=== PATIENT | female | born 1950 | race Hispanic/Latino ===

== ENCOUNTER → 2018-09-19 | Outpatient (CLI) | payer MEDICARE, OTHER ==
[~2018-09-19] MED LIST: ATACAND4 MG PO; BENADRYL25 M1 PO; CELEBREX100 MG PO; CO Q-10200 MG PEG; IOPAMIDOL 370 MG/ML 200 ML INFUS..BTL INJ ONE; METOPROLOL SUCC50 MG PO; MYRBETRIQ25 MG; NEXIUM40 MG; SIMVASTATIN20 MG PO; SODIUM CHLORIDE 0.9% 50ML 50 ML ONE; VITAMIN D3400 UNIT PO; XANAX0.25 MG PO; [UNRECOGNIZED DRUG - OTHER] VG
[2018-09-19 10:21] LABS: BLOOD UREA NITROGEN 22 mg/dL (7-26); BUN/CREATININE RATIO 31 (6-25); CREATININE, SERUM 0.72 mg/dL (0.57-1.11); EST GLOMERULAR FILTRATION RATE > 60 ML/MIN (60-)
--- NOTE | 2018-09-19 11:38 | Diagnostic Imaging Report ---
EXAM: CT Abdomen and Pelvis WITH contrast INDICATION: Melena. COMPARISON: None. TECHNIQUE: Abdomen and pelvis were scanned utilizing a multidetector helical scanner from the lung base to the pubic symphysis after administration of IV contrast. Coronal and sagittal reformations were obtained. Routine protocol was performed. Scan was performed when during portal venous phase. IV CONTRAST: 100 cc of Isovue-370 ORAL CONTRAST: None. COMPLICATIONS: None RADIATION DOSE: Total DLP: 301.3 mGy*cm Dose modulation, iterative reconstruction, and/or weight based adjustment of the mA/kV was utilized to reduce the radiation dose to as low as reasonably achievable. FINDINGS: LINES and TUBES: None. LOWER THORAX: Unremarkable HEPATOBILIARY: No evidence of focal lesion. No biliary ductal dilation. GALLBLADDER: No radio-opaque stones or sludge. No wall thickening. SPLEEN: No splenomegaly. PANCREAS: No focal masses or ductal dilatation. ADRENALS: No adrenal nodules KIDNEYS/URETERS: Kidneys enhance symmetrically. No evidence of hydronephrosis, solid mass, or stone. Subcentimeter bilateral renal hypodensities are too small to characterize, but likely represent cysts. Extrarenal pelvis bilaterally. GI TRACT: No evidence of wall thickening or distension. Appendix is normal. There is scattered colonic diverticulosis without CT evidence of diverticulitis. PELVIC ORGANS/BLADDER: Unremarkable. The uterus is absent. LYMPH NODES: No lymphadenopathy. VESSELS: There are scattered atherosclerotic calcifications in the aorta and branch vessels. PERITONEUM / RETROPERITONEUM: No free air or fluid. BONES AND SOFT TISSUES: Unremarkable. CONCLUSION: Colonic diverticulosis without CT evidence of diverticulitis. Signed by: Dr. Ryne Rice MD on 09/19/2018 11:34 AM
== END ==
LOC: CT 09:12
PROVIDERS: ATTEND Internal Medicine Gastroenterology
DX: K92.1 Melena (principal)
CPT/HCPCS: 36415; 74177; 82565; 84520; Q9967

== ENCOUNTER 2018-09-23 18:20 | Inpatient (IN) | payer MEDICARE, OTHER ==
[~2018-09-23] VITALS: Ht 152.4 cm; Wt 61.7 kg
--- OUTSIDE RECORDS SUMMARY | 2018-09-23 18:23 | XMS REPORT | Summary of Care ---
Author Author [facility] Organization [facility] Address Unknown Phone Unavailable Encounter FIN [facility] [address] Date(s): 04/08/17 - 04/08/17 [facility] [address] [place], [place] [address] Discharge Disposition: Discharged to Home or Self Care Attending Physician: Elliott Orozco MD Admitting Physician: Elliott Orozco MD Vital Signs No data available for this section Problem List No data available for this section Allergies, Adverse Reactions, Alerts No data available for this section Medications No data available for this section Results No data available for this section Immunizations No data available for this section Procedures No data available for this section Social History No data available for this section Assessment and Plan No data available for this section
--- OUTSIDE RECORDS SUMMARY | 2018-09-23 18:23 | XMS REPORT | Summary of Care ---
Author Author [facility] Organization [facility] Address Unknown Phone Unavailable Encounter GURJIT Theodore(CASSIDY) [id number] Date(s): 12/29/16 - 12/29/16 [facility] [address] [place] [address]- [phone] Discharge Disposition: Home or Self Care Attending Physician: Lizabeth Soliman MD Referring Physician: Lizabeth Soliman MD Vital Signs 1 2 3 Most recent to oldest [Reference Range]: 152.4 cm (12/21/16 11:57 AM) Height 97.9 DegF (12/21/16 11:57 AM) Temperature Oral [96.4-99.1 DegF] 106/51 mmHg (12/29/16 1:45 PM) 136/64 mmHg (12/29/16 12:45 PM) 127/67 mmHg (12/29/16 12:30 PM) Blood Pressure [90-140/60-90 mmHg] 14 BRMIN (12/29/16 1:45 PM) 15 BRMIN (12/29/16 12:45 PM) 16 BRMIN (12/29/16 12:30 PM) Respiratory Rate [14-20 BRMIN] 66 bpm (12/29/16 8:54 AM) 60 bpm (12/21/16 11:57 AM) Peripheral Pulse Rate [60-100 bpm] 60.455 kg (12/21/16 11:57 AM) Weight 26.03 m2 (12/21/16 11:57 AM) Body Mass Index Problem List Condition Effective Dates Status Health Status Informant Heart Resolved disease(Confirmed) Diverticulosis(Confi Resolved rmed) GERD Resolved (gastroesophageal reflux disease)(Confirmed) Hypercholesterolemia Resolved (Confirmed) Hypertension(Confirm Resolved ed) Allergies, Adverse Reactions, Alerts Substance Reaction Severity Status azole antifungals Active codeine Active Demerol HCl Active sulfa drugs Active Vicodin Active Medications acetaminophen (ANES) Route: IV, Drug form: INJ, ONCE, Stop date: 12/29/16 11:03:00 CDT Start Date: 12/29/16 Stop Date: 12/29/16 Status: Completed ANES flumazenil 0.2 mg, Route: IVP, PRN, Dosing Weight 60.455, kg, PRN Benzodiazepine Reversal, Initial dose, Start date: 12/28/16 18:32:00 CDT, Duration: 30 day, Stop date: 18:31:00 CDT Start Date: 12/28/16 Stop Date: 12/29/16 Status: Discontinued ANES naloxone 0.4 mg, Route: IVP, Q2MIN, Dosing Weight 60.455, kg, PRN Narcotic Reversal, Star t date: 12/28/16 18:32:00 CDT, Duration: 8 doses or times, Stop date: Limited # of times Start Date: 12/28/16 Stop Date: 12/29/16 Status: Discontinued ANES ondansetron 4 mg, Route: IVP, ONCE, Dosing Weight 60.455, kg, PRN Nausea & Vomiting, Start date: 12/28/16 18:32:00 CDT Start Date: 12/28/16 Stop Date: 12/29/16 Status: Discontinued candesartan 4 mg oral tablet 4 mg=1 tab, PO, Daily, 0 Refill(s) Start Date: 12/21/16 Status: Ordered dexamethasone (ANES) Route: IV, Drug form: INJ, ONCE, Stop date: 12/29/16 11:03:00 CDT Start Date: 12/29/16 Stop Date: 12/29/16 Status: Completed ePHEDrine (ANES) Route: IV, Drug form: INJ, ONCE, Stop date: 12/29/16 11:04:00 CDT Start Date: 12/29/16 Stop Date: 12/29/16 Status: Completed Exparel 20 mL, Route: InFILtration(local), Drug Form: INJ, Dosing Weight 60.455, kg, ONC E, For Hemorrhoidectomy, Start date: 12/29/16 6:57:00 CDT, Stop date: 12/29/16 6 :57:00 CDT Notes: (Same as: Exparel) NOT FOR IV use Postoperative analgesia: Infi ltration (local): Dose is based on surgical site and volume required to cover th e area (in general, the maximum total dose is 266 mg).Bunionectomy: 7 mL into th e tissues surrounding the osteotomy and 1 mL into the subcutaneous tissue of the surgical site (total dose=8 mL [106 mg])Hemorrhoidectomy: 30 mL (20 mL vial dil uted with 10 mL NS) divided and administered as 6 injections of 5 mL each (total dose=30 mL [266 mg]) Start Date: 12/29/16 Stop Date: 12/29/16 Status: Ordered fentaNYL (ANES) Route: IV, Drug form: INJ, ONCE, Stop date: 12/29/16 10:53:00 CDT Start Date: 12/29/16 Stop Date: 12/29/16 Status: Completed HC Pramoxine 2.5%-1% rectal cream 1 appl, FL, TID, # 30 gm, 0 Refill(s) Start Date: 12/21/16 Stop Date: 12/29/16 Status: Discontinued ketOROLAC (ANES) IV, ONCE Start Date: 12/29/16 Stop Date: 12/29/16 Status: Completed Lactated Ringers Injection IV 1000 mL 1,000 mL, Rate: 25 ml/hr, Infuse over: 40 hr, Route: IV, Dosing Weight 60.455 kg , Total Volume: 1,000, Start date: 12/29/16 8:51:00 CDT, Duration: 30 day, Stop date: 01/28/17 8:50:00 CDT Start Date: 12/29/16 Stop Date: 12/29/16 Status: Discontinued Lactated Ringers Injection IV 1000 mL 1,000 mL, Rate: 125 ml/hr, Infuse over: 8 hr, Route: IV, Dosing Weight 60.455 kg , Total Volume: 1,000, Start date: 12/28/16 18:32:00 CDT, Duration: 30 day, Stop date: 01/27/17 18:31:00 CDT Start Date: 12/28/16 Stop Date: 12/29/16 Status: Discontinued Lactated Ringers Injection IV 1000 mL 1,000 mL, Rate: 25 ml/hr, Infuse over: 40 hr, Route: IV, Dosing Weight 60.455 kg , Total Volume: 1,000, Start date: 12/28/16 18:16:00 CDT, Duration: 30 day, Stop date: 01/27/17 18:15:00 CDT Start Date: 12/28/16 Stop Date: 12/29/16 Status: Discontinued lidocaine (ANES) Route: IV, Drug form: INJ, ONCE, Stop date: 12/29/16 10:58:00 CDT Start Date: 12/29/16 Stop Date: 12/29/16 Status: Completed LR 500 ml INJ (ANES) Route: IV, Total Volume: 500, Start date: 12/29/16 10:08:00 CDT, Stop date: 12/11 02/27 11:08:00 CDT Start Date: 12/29/16 Stop Date: 12/29/16 Status: Completed Melatonin 10 mg oral capsule 10 mg=1 cap, PO, Bedtime, 0 Refill(s) Start Date: 12/21/16 Status: Ordered midazolam (ANES) Route: IV, Drug form: SOLN, ONCE, Stop date: 12/29/16 10:53:00 CDT Start Date: 12/29/16 Stop Date: 12/29/16 Status: Completed nitrofurantoin macrocrystals 100 mg oral capsule (Macrodantin) 100 mg=1 cap, PO, QID, 0 Refill(s) Start Date: 12/21/16 Status: Ordered ondansetron (ANES) Route: IV, Drug form: INJ, ONCE, Stop date: 12/29/16 11:03:00 CDT Start Date: 12/29/16 Stop Date: 12/29/16 Status: Completed Phenergan 25 mg oral tablet 25 mg=1 tab, PO, Q4H, PRN Nausea, # 40 tab, 1 Refill(s), Pharmacy: [facility] Start Date: 12/29/16 Stop Date: 01/08/17 Status: Ordered propofol (ANES) Route: IV, Drug form: INJ, ONCE, Stop date: 12/29/16 10:58:00 CDT Start Date: 12/29/16 Stop Date: 12/29/16 Status: Completed Restasis 0.05% ophthalmic emulsion 1 drp, BOTH EYES, BID, # 30 mL, 0 Refill(s) Start Date: 12/21/16 Status: Ordered Results ELECTROLYTES Most recent to 1 oldest [Reference Range]: Sodium Lvl [135-145 141 mEq/L mEq/L] (12/21/16 12:31 PM) Potassium Lvl 4.0 mEq/L [3.5-5.1 mEq/L] (12/21/16 12:31 PM) Chloride Lvl [95-109 105 mEq/L mEq/L] (12/21/16 12:31 PM) CO2 [24-32 mEq/L] 31 mEq/L (12/21/16:31 PM) AGAP [10.0-20.0 9.0 mEq/L mEq/L] *LOW* (12/21/16:31 PM) CHEM PANEL Most recent to 1 oldest [Reference Range]: Creatinine Lvl 0.57 mg/dL [0.50-1.40 mg/dL] (12/21/16 12:31 PM) eGFR 96 mL/min/1.73m2 1 *NA* (12/21/16:31 PM) BUN [7-22 mg/dL] 15 mg/dL (12/21/16 12:31 PM) B/C Ratio [6-25] 26 *HI* (12/21/16:31 PM) Glucose Lvl [70-99 101 mg/dL mg/dL] *HI* (12/21/16 12:31 PM) Total Protein 7.2 g/dL [6.4-8.4 g/dL] (12/21/16 12:31 PM) Albumin Lvl [3.5-5.0 4.0 g/dL g/dL] (12/21/16:31 PM) Globulin [2.7-4.2 3.2 g/dL g/dL] (12/21/16:31 PM) A/G Ratio [0.7-1.6] 1.2 (12/21/16 12:31 PM) Calcium Lvl 9.6 mg/dL [8.5-10.5 mg/dL] (12/21/16:31 PM) ALT [0-65 unit/L] 20 unit/L (7/11/17 12:31 PM) AST [0-37 unit/L] 14 unit/L (12/21/16 12:31 PM) Alk Phos [39-136 54 unit/L unit/L] (12/21/16 12:31 PM) Bili Total [0.2-1.3 0.5 mg/dL mg/dL] (12/21/16 12:31 PM) 1Result Comment: The eGFR is calculated using the CKD-EPI formula. In most young, healthy individuals the eGFR will be >90 mL/min/1.73m2. The eGFR declines with age. An eGFR of 60-89 may be normal in some populations, particularly the elderly, for whom the CKD-EPI formula has not been extensively validated. Use of the eGFR is not recommended in the following populations: Individuals with unstable creatinine concentrations, including patients and those with serious co-morbid conditions. Patients with extremes in muscle mass or diet. The data above are obtained from the National Kidney Disease Education Program ( NKDEP) which additionally recommends that when the eGFR is used in patients with extremes of body mass index for purposes of drug dosing, the eGFR should be mul tiplied by the estimated BMI. HEMATOLOGY Most recent to 1 oldest [Reference Range]: Hgb [12.0-16.0 g/dL] 14.9 g/dL (12/21/16 12:31 PM) Hct [36.0-48.0 %] 44.6 % (12/21/16 12:31 PM) Immunizations No data available for this section Procedures Procedure Date Related Diagnosis Body Site Cardiac catheterisation 06/13/16 Tarsal tunnel release 04/13/15 Colonoscopy Operation Vaginal hysterectomy Social History Social History Type Response Alcohol Current, Frequency: 1-2 times per month. Smoking Status Never smoker; Exposure to Tobacco Smoke None; Cigarette Smoking Last 365 Days No; Reg Smoking Cessation Counseling No Assessment and Plan Extracted from: Title: Clinical Document Author: Lizabeth Soliman MD Date: 12/29/16 PREOPERATIVE DIAGNOSIS: Grade 3 internal hemorrhoids with prolapse and bleeding,screening colonoscopy. POSTOPERATIVE DIAGNOSIS: Grade 3 internal hemorrhoids with prolapse and bleeding,screening colonoscopy. PROCEDURE Transanal hemorrhoidal dearterialization, colonoscopy. Please refer to separate colonoscopy report. SURGEON: Dr. Soliman CLOUD SOFTWARE ENGINEER: None ANESTHESIA: General IV FLUIDS: 150 mL URINE OUTPUT: No Swanson. ESTIMATED BLOOD LOSS: 10 cc COMPLICATIONS: None FINDINGS: Grade III internal hemorrhoids and no sites with active bleeding was noted, severe pandiverticulosis with fecaliths and tortuous colon. DISPOSITION: Tolerated the procedure well, extubated in the operating room and transferred to postop anesthesia care unit in stable hemodynamic condition. COUNTS: Needle, sponge and correct x 2. INDICATIONS FOR PROCEDURE: The patient is a 66-year-old man who presents a transanal hemorrhoidal dearterialization procedure for chronically prolapsing and bleeding internal hemorrhoids. Informed consent was obtained. All questions were answered to his satisfaction. PROCEDURE IN DETAIL: The patient was brought to the operating room, placed on the table in supine position. General endotracheal anesthesia was induced successfully. Subsequently, the patient was placed on candy canes in the lithotomy position and the perineum was prepped and draped in usual standard sterile fashion. Using the transanal hemorrhoidal dearterialization kit, we identified four arterial signals at 12:00, 3:00, 6:00, and 9:00 respectively. At 4 cm above the dentate line, we placed a 2-0 Vicryl in a [id number] fashion under Doppler ultrasound guidance and confirmed cessation of the arterial signal in each side. Subsequently, we ran each suture over the prolapsing internal hemorrhoidal mucosa up to a centimeter above the dentate line and incorporating the friable internal hemorrhoids with bleeding. We retracted each hemorrhoid back to the distal rectum and performed a hemorrhoidopexy and mucopexy and confirmed complete hemostasis and a mucopexy of each hemorrhoid. Surgicel was left in place. One vial of Exparel was injected for local anesthesia. The Exparel was diluted with 10 mL of normal saline. The procedure was completed. Extracted from: Title: preop Author: Hodan Morales, MPH, Date: 12/29/16 WAT[place] Assessment/Plan I recommend to proceed with transanal hemorrhoidal derarterialization (THD) and she desires to proceed. We will also perform colonoscopy at the same time. We strongly advised the patient follow up with GI service for the colonoscopy. However,the patientwould like to have both procedures done at the same timein an effort to avoid2 different procedures. The patient agrees to proceed with the procedure. Risks, benefits and alternatives to the procedure were discussed in great detail. The patient will schedule the procedure in the near future. All questions were answered to the patient s satisfaction The patient agrees to proceed with the procedure. Risks, benefits and alternatives to the procedure were discussed in great detail. The patient will schedule the procedure in the near future. All questions were answered to the patient s satisfaction The pt was seen and examined together by Hodan Elmore and Dr. Lizabeth Soliman, who provided a [id number] visit and performed the physical exam, assessment & plan, and the note transcribed by Hodan Elmore total exam time, coordination of care, education >25 minutes [3]
--- OUTSIDE RECORDS SUMMARY | 2018-09-23 18:23 | XMS REPORT | Continuity of Care Document ---
Author Author [facility] Interface Address Unknown Phone Unavailable Problems Problem Status Onset Date Classification Date Reported Comments Source Discharge Diagnosis: Complete rotator cuff tear or rupture of right shoulder, not specified as traumatic 05/12/2017 05/14/2017 [facility] UNK Active 11/09/2016 [facility] Heart disease Resolved Problem 01/01/2017 [facility] Diverticulosis Resolved Problem 01/01/2017 [facility] GERD (<span ID="[id number]">Confirmed</span>) Resolved Problem 01/01/2017 [facility] Hypercholesterolemia Resolved Problem 01/01/2017 [facility] Dry eyes Active Problem 05/14/2017 [facility] Hyperlipidemia Active Problem 05/14/2017 [facility] Hypertension Active Problem 05/14/2017 [facility] Urge urinary incontinence Active Problem 05/14/2017 [facility] Medications Medication Details Route Status Patient Instructions Ordering Provider Order Date Source promethazine IVPB 12.5 mg, IV Piggyback, Once PRN for nausea/vomiting, infuse over 15 minutes, first dose 05/12/17 10:24:00 [employer] Inactive 05/12/2017 [facility] morphine 1 mg, IV Push, q5min PRN for Pain Moderate (4- 6), order duration: 5 doses, first dose 05/12/17 10:24:00 [employer], stop date Limited # of times Inactive 05/12/2017 [facility] Misc Medication 700 mL, Soln-IV, IV, Once, first dose 05/12/17 10:23:00 [employer], stop date 05/12/17 10:23:00 [employer] Inactive 05/12/2017 [facility] ketorolac 30 mg=1 mL, Injection, IV, Once, first dose 05/12/17 10:00:00 [employer], stop date 05/12/17 10:00:00 [employer] Inactive 05/12/2017 [facility] glycopyrrolate 0.4 mg=2 mL, Injection, IV, Once, first dose 05/12/17 10:00:00 [employer], stop date 05/12/17 10:00:00 [employer] Inactive 05/12/2017 [facility] neostigmine 3 mg=3 mL, Injection, IV, Once, first dose 05/12/17 10:00:00 [employer], stop date 05/12/17 10:00:00 [employer] Inactive 05/12/2017 [facility] ondansetron 4 mg=2 mL, Injection, IV, Once, first dose 05/12/17 9:53:00 [employer], stop date 05/12/17 9:53:00 [employer] Inactive 05/12/2017 [facility] ePHEDrine 10 mg=0.2 mL, Injection, IV, Once, first dose 05/12/17 9:17:00 [employer], stop date 05/12/17 9:17:00 [employer] Inactive 05/12/2017 [facility] dexamethasone 8 mg=2 mL, Injection, IV, Once, first dose 05/12/17 9:13:00 [employer], stop date 05/12/17 9:13:00 [employer] Inactive 05/12/2017 [facility] ceFAZolin 1 gm, Soln-IV, IV, Once, first dose 05/12/17 9:12:00 [employer], stop date 05/12/17 9:12:00 [employer] Inactive 05/12/2017 [facility] propofol 150 mg=15 mL, Emulsion, IV, Once, first dose 05/12/17 9:02:00 [employer], stop date 05/12/17 9:02:00 [employer] Inactive 05/12/2017 [facility] lidocaine 5 mL, Injection, IV, Once, first dose 05/12/17 9:02:00 [employer], stop date 05/12/17 9:02:00 [employer] Inactive 05/12/2017 [facility] rocuronium 30 mg=3 mL, Injection, IV, Once, first dose 05/12/17 9:02:00 [employer], stop date 05/12/17 9:02:00 [employer] Inactive 05/12/2017 [facility] ropivacaine 150 mg=30 mL, Injection, Nerve Block, Once, first dose 05/12/17 8:30:00 [employer], stop date 05/12/17 8:30:00 [employer] Inactive 05/12/2017 [facility] fentaNYL 100 mcg=2 mL, Injection, IV, Once, first dose 05/12/17 8:26:00 [employer], stop date 05/12/17 8:26:00 [employer] Inactive 05/12/2017 [facility] midazolam 2 mg=2 mL, Injection, IV, Once, first dose 05/12/17 8:26:00 [employer], stop date 05/12/17 8:26:00 [employer] Inactive 05/12/2017 [facility] Cefazolin 1 gm, Soln-IV, IV Piggyback, Once, infuse over 30 minutes, first dose 05/12/17 7:00:00 [employer], stop date 05/12/17 7:00:00 [employer], Prophylaxis Inactive 05/12/2017 [facility] LR 1,000 mL 1,000 mL, IV, 100 mL/hr, start date 05/12/17 6:53:00 [employer], For Adults Inactive 05/12/2017 [facility] multivitamin Oral, qWeek, 0 Refill(s) Active 05/03/2017 [facility] glucosamine 500 mg, Oral, Daily, 0 Refill(s) Active 05/03/2017 [facility] Lamy-3 oral capsule Oral, Daily, 0 Refill(s) Active 05/03/2017 [facility] Vitamin D3 400 IntUnit, Oral, Daily, 0 Refill(s) Active 05/03/2017 [facility] solifenacin succinate 10 MG Oral Tablet [VESICARE] 10 mg=1 tabs, Oral, Daily, 0 Refill(s) Active 05/03/2017 [facility] Estradiol 0.01 MG Vaginal Tablet [Vagifem] 10 mcg=1 tabs, VAG, qHS, 0 Refill(s) Active 05/03/2017 [facility] simvastatin 20 mg oral tablet 20 mg=1 tabs, Oral, qHS, 0 Refill(s) Active 05/03/2017 [facility] Cyclosporine 0.5 MG/ML Ophthalmic Suspension [Restasis] 1 drops, Eye-Both, q12hr, 0 Refill(s) Active 05/03/2017 [facility] metoprolol succinate 25 mg oral tablet, extended release 25 mg=1 tabs, Oral, Daily, 0 Refill(s) Active 05/03/2017 [facility] Melatonin 10 mg, Oral, qHS, 0 Refill(s) Active 05/03/2017 [facility] candesartan 4 mg oral tablet 4 mg=1 tabs, Oral, Daily, 0 Refill(s) Active 05/03/2017 [facility] ALPRAZolam 0.25 mg oral tablet 0.25 mg=1 tabs, Oral, Daily, 0 Refill(s) Active 05/03/2017 [facility] Phenergan 25 mg oral tablet 25 mg=1 tab, PO, Q4H, PRN Nausea, # 40 tab, 1 Refill(s), Pharmacy: [id number] Active 12/29/2016 [facility] ePHEDrine (ANES) Route: IV, Drug form: INJ, ONCE, Stop date: 12/29/16 11:04:00 CDT Inactive 12/29/2016 [facility] ondansetron (ANES) Route: IV, Drug form: INJ, ONCE, Stop date: 12/29/16 11:03:00 CDT Inactive 12/29/2016 [facility] ketOROLAC (ANES) IV, ONCE Inactive 12/29/2016 [facility] dexamethasone (ANES) Route: IV, Drug form: INJ, ONCE, Stop date: 12/29/16 11:03:00 CDT Inactive 12/29/2016 [facility] acetaminophen (ANES) Route: IV, Drug form: INJ, ONCE, Stop date: 12/29/16 11:03:00 CDT Inactive 12/29/2016 [facility] lidocaine (ANES) Route: IV, Drug form: INJ, ONCE, Stop date: 12/29/16 10:58:00 CDT Inactive 12/29/2016 [facility] propofol (ANES) Route: IV, Drug form: INJ, ONCE, Stop date: 12/29/16 10:58:00 CDT Inactive 12/29/2016 [facility] midazolam (ANES) Route: IV, Drug form: SOLN, ONCE, Stop date: 12/29/16 10:53:00 CDT Inactive 12/29/2016 [facility] fentaNYL (ANES) Route: IV, Drug form: INJ, ONCE, Stop date: 12/29/16 10:53:00 CDT Inactive 12/29/2016 [facility] LR 500 ml INJ (ANES) Route: IV, Total Volume: 500, Start date: 12/29/16 10:08:00 CDT, Stop date: 12/29/16 11:08:00 CDT Inactive 12/29/2016 [facility] Calcium Chloride 0.0014 MEQ/ML / Potassium Chloride 0.004 MEQ/ML / Sodium Chloride 0.103 MEQ/ML / Sodium Lactate 0.028 MEQ/ML Injectable Solution 1,000 mL, Rate: 25 ml/hr, Infuse over: 40 hr, Route: IV, Dosing Weight 60.455 kg, Total Volume: 1,000, Start date: 12/29/16 8:51:00 CDT, Duration: 30 day, Stop date: 01/28/17 8:50:00 CDT Inactive 12/29/2016 [facility] Exparel 20 mL, Route: InFILtration(local), Drug Form: INJ, Dosing Weight 60.455, kg, ONCE, For Hemorrhoidectomy, Start date: 12/29/16 6:57:00 CDT, Stop date: 12/29/16 6:57:00 CDTNotes: (Same as: Exparel) NOT FOR IV use Postoperative analgesia: Infiltration (local): Dose is based on surgical site and volume required to cover the area (in general, the maximum total dose is 266 mg). Bunionectomy: 7 mL into the tissues surrounding the osteotomy and 1 mL into the subcutaneous tissue of the surgical site (total dose=8 mL [106 mg]) Hemorrhoidectomy: 30 mL (20 mL vial diluted with 10 mL NS) divided and administered as 6 injections of 5 mL each (total dose=30 mL [266 mg]) Inactive 12/29/2016 [facility] Flumazenil 0.2 mg, Route: IVP, PRN, Dosing Weight 60.455, kg, PRN Benzodiazepine Reversal, Initial dose, Start date: 12/28/16 18:32:00 CDT, Duration: 30 day, Stop date: 01/27/17 18:31:00 CDT No Longer Active 12/28/2016 [facility] Naloxone 0.4 mg, Route: IVP, Q2MIN, Dosing Weight 60.455, kg, PRN Narcotic Reversal, Start date: 12/28/16 18:32:00 CDT, Duration: 8 doses or times, Stop date: Limited # of times No Longer Active 12/28/2016 [facility] Ondansetron 4 mg, Route: IVP, ONCE, Dosing Weight 60.455, kg, PRN Nausea & Vomiting, Start date: 12/28/16 18:32:00 CDT No Longer Active 12/28/2016 [facility] Calcium Chloride 0.0014 MEQ/ML / Potassium Chloride 0.004 MEQ/ML / Sodium Chloride 0.103 MEQ/ML / Sodium Lactate 0.028 MEQ/ML Injectable Solution 1,000 mL, Rate: 125 ml/hr, Infuse over: 8 hr, Route: IV, Dosing Weight 60.455 kg, Total Volume: 1,000, Start date: 12/28/16 18:32:00 CDT, Duration: 30 day, Stop date: 01/27/17 18:31:00 CDT No Longer Active 12/28/2016 [facility] Calcium Chloride 0.0014 MEQ/ML / Potassium Chloride 0.004 MEQ/ML / Sodium Chloride 0.103 MEQ/ML / Sodium Lactate 0.028 MEQ/ML Injectable Solution 1,000 mL, Rate: 25 ml/hr, Infuse over: 40 hr, Route: IV, Dosing Weight 60.455 kg, Total Volume: 1,000, Start date: 12/28/16 18:16:00 CDT, Duration: 30 day, Stop date: 01/27/17 18:15:00 CDT No Longer Active 12/28/2016 [facility] nitrofurantoin macrocrystals 100 mg oral capsule (Macrodantin) 100 mg=1 cap, PO, QID, 0 Refill(s) Active 12/21/2016 [facility] Cyclosporine 0.5 MG/ML Ophthalmic Suspension [Restasis] 1 drp, BOTH EYES, BID, # 30 mL, 0 Refill(s) Active 12/21/2016 [facility] Melatonin 10 mg oral capsule 10 mg=1 cap, PO, Bedtime, 0 Refill(s) Active 12/21/2016 [facility] HC Pramoxine 2.5%-1% rectal cream 1 appl, CT, TID, # 30 gm, 0 Refill(s) No Longer Active 12/21/2016 [facility] candesartan 4 mg oral tablet 4 mg=1 tab, PO, Daily, 0 Refill(s) Active 12/21/2016 [facility] Allergies, Adverse Reactions, Alerts Substance Category Reaction Severity Reaction type Status Date Reported Comments Source azole antifungals Assertion Drug allergy Active [facility] codeine Assertion Drug allergy Active [facility] Demerol HCl Assertion Drug allergy Active [facility] sulfa drugs Assertion Drug allergy Active [facility] Vicodin Assertion Drug allergy Active [facility] Immunizations Immunization Date Given Site Status Last Updated Comments Source Results Order Name Results Value Reference Range Date Interpretation Comments Source LABORATORY Hemoglobin 13.9 g/dL 12.0 - 16.0 05/03/2017 [facility] Hematocrit 41.7 % 36.0 - 48.0 05/03/2017 [facility] AGAP 11.0 meq/L 10.0 - 20.0 05/03/2017 [facility] Calcium Level 9.5 mg/dL 8.5 - 10.5 05/03/2017 [facility] eGFR 95 mL/min/1.73m2 05/03/2017 Result Comment: The eGFR is calculated using the [...] from the National Kidney Disease Education Program (NKDEP) which additionally recommends that when the eGFR is used in patients with extremes of body mass index for purposes of drug dosing, the eGFR should be multiplied by the estimated BMI. [facility] Carbon Dioxide Level 29 meq/L 24 - 32 05/03/2017 [facility] Potassium Level 4.0 meq/L 3.5 - 5.1 05/03/2017 [facility] Chloride Level 105 meq/L 95 - 109 05/03/2017 [facility] BUN 18 mg/dL 7 - 22 05/03/2017 [facility] Creatinine 0.59 mg/dL 0.50 - 1.40 05/03/2017 [facility] Sodium Level 141 meq/L 135 - 145 05/03/2017 [facility] Glucose Lvl 69 mg/dL 70 - 99 05/03/2017 Result Comment: Adult reference range values reflect the clinical guidelines of the [place] [employer]. [facility] Magnesium Level 2.2 mg/dL 1.8 - 2.4 05/03/2017 [facility] CHEM PANEL Bili Total 0.5 mg/dL 0.2 - 1.3 12/21/2016 [facility] CHEM PANEL Alk Phos 54 unit/L 39 - 136 12/21/2016 [facility] CHEM PANEL ALT 20 unit/L 0 - 65 12/21/2016 [facility] CHEM PANEL AST 14 unit/L 0 - 37 12/21/2016 [facility] CHEM PANEL Calcium Lvl 9.6 mg/dL 8.5 - 10.5 12/21/2016 [facility] CHEM PANEL Total Protein 7.2 g/dL 6.4 - 8.4 12/21/2016 [facility] CHEM PANEL CO2 31 meq/L 24 - 32 12/21/2016 [facility] CHEM PANEL BUN 15 mg/dL 7 - 22 12/21/2016 [facility] CHEM PANEL Creatinine Lvl 0.57 mg/dL 0.50 - 1.40 12/21/2016 [facility] CHEM PANEL Glucose Lvl 101 mg/dL 70 - 99 12/21/2016 [facility] CHEM PANEL Potassium Lvl 4.0 meq/L 3.5 - 5.1 12/21/2016 [facility] CHEM PANEL Albumin Lvl 4.0 g/dL 3.5 - 5.0 12/21/2016 [facility] CHEM PANEL Sodium Lvl 141 meq/L 135 - 145 12/21/2016 [facility] CHEM PANEL Chloride Lvl 105 meq/L 95 - 109 12/21/2016 [facility] CHEM PANEL eGFR 96 mL/min/1.73m2 12/21/2016 Result Comment: The eGFR is calculated using the [...] from the National Kidney Disease Education Program (NKDEP) which additionally recommends that when the eGFR is used in patients with extremes of body mass index for purposes of drug dosing, the eGFR should be multiplied by the estimated BMI. [facility] CHEM PANEL Globulin 3.2 g/dL 2.7 - 4.2 12/21/2016 [facility] CHEM PANEL B/C Ratio 26 6 - 25 12/21/2016 [facility] CHEM PANEL AGAP 9.0 meq/L 10.0 - 20.0 12/21/2016 [facility] CHEM PANEL A/G Ratio 1.2 0.7 - 1.6 12/21/2016 [facility] HEMATOLOGY Hgb 14.9 g/dL 12.0 - 16.0 12/21/2016 [facility] HEMATOLOGY Hct 44.6 % 36.0 - 48.0 12/21/2016 [facility] Vital Signs Vital Sign Value Date Comments Source Respitory Rate 16 05/12/2017 [facility] Heart Rate 62 05/12/2017 [facility] Systolic (mm Hg) 122 05/12/2017 [facility] Diastolic (mm Hg) 57 05/12/2017 [facility] Respitory Rate 16 05/12/2017 [facility] Heart Rate 63 05/12/2017 [facility] Systolic (mm Hg) 115 05/12/2017 [facility] Diastolic (mm Hg) 56 05/12/2017 [facility] Systolic (mm Hg) 118 05/12/2017 [facility] Diastolic (mm Hg) 55 05/12/2017 [facility] Respitory Rate 18 05/12/2017 [facility] Heart Rate 62 05/12/2017 [facility] Temperature Oral (F) 36.8 Marci 05/12/2017 [facility] Peripheral Pulse Rate 56 05/12/2017 [facility] Peripheral Pulse Rate 56 05/12/2017 [facility] Weight Measured 75 05/12/2017 [facility] Temperature Oral (F) 36.5 Marci 05/12/2017 [facility] Height 152.40 cm 05/12/2017 [facility] Temperature Oral (F) 36.5 Marci 05/03/2017 [facility] Height 152.40 cm 05/03/2017 [facility] Weight Measured 60.4 05/03/2017 [facility] Systolic (mm Hg) 106 12/29/2016 [facility] Diastolic (mm Hg) 51 12/29/2016 [facility] Respitory Rate 14 12/29/2016 [facility] Systolic (mm Hg) 136 12/29/2016 [facility] Diastolic (mm Hg) 64 12/29/2016 [facility] Respitory Rate 15 12/29/2016 [facility] Systolic (mm Hg) 127 12/29/2016 [facility] Diastolic (mm Hg) 67 12/29/2016 [facility] Respitory Rate 16 12/29/2016 [facility] Heart Rate 66 12/29/2016 [facility] Height 152.4 cm 12/21/2016 [facility] Weight 60.455 12/21/2016 [facility] BMI Calculated 26.03 12/21/2016 [facility] Temperature Oral (F) 97.9 F 12/21/2016 [facility] Heart Rate 60 12/21/2016 [facility] Encounters Location Location Details Encounter Type Encounter Number Reason For Visit Attending Provider ADM Date DC Date Status Source Outpatient [id number] DARIUS DUNAWAY 09/28/2016 Active [facility] Outpatient [id number] THEANNALEEOROGreyson VOLOYIANNIS 10/28/2016 [facility] Outpatient [id number] THEANNALEEOROGreyson VOLOYIANNIS 12/29/2016 [facility] Day Surgery [id number] Theodoros Voloyiannis 12/29/2016 12/29/2016 [facility] Outpatient [id number] DARIUS DUNAWAY 01/12/2017 Active [facility] Outpatient [id number] PAIN Elliott Orozco MD 04/08/2017 Active [facility] Outpatient [id number] Elliott Orozco MD 04/08/2017 04/09/2017 [facility] Outpatient [id number] Elliott Orozco MD 05/12/2017 05/12/2017 Active [facility] Outpatient [id number] Elliott Orozco MD 05/12/2017 05/12/2017 [facility] Procedures Procedure Code Date Perfomer Comments Source Cardiac catheterisation 31898190 06/13/2016 [facility] Tarsal tunnel release [id number] 04/13/2015 [facility] Colonoscopy [id number] [facility] Operation [id number] [facility] Vaginal hysterectomy [id number] [facility] bilateral eye lift [facility] cardiac cath [facility] hysterectomy [facility] Tarsal tunnel bilateral extremities [facility] Transanal hemorrhoidal dearterialization [facility]
--- OUTSIDE RECORDS SUMMARY | 2018-09-23 18:24 | XMS REPORT ---
Author Author [facility] Address Unknown Phone Unavailable Care Team Providers Care Design Inserter Name Role Phone ASHLI NEELY Unavailable Unavailable Problems This patient has no known problems. Allergies, Adverse Reactions, Alerts This patient has no known allergies or adverse reactions. Medications This patient has no known medications. Results Test Description Test Time Test Comments Text Results Atomic Results Result Comments CT ABDOMEN/PELVIS W 2018-09-19 11:19:00 [place] [address] Patient Name: EMMANUEL COATES MR #: [id number] : 1950 Age/Sex: 68/F Req #: [id number] Adm Physician: Ordered by: ASHLI NEELY MD Report #: [id number] Location: CT Room/Bed: Procedure: [id number] CT/CT ABDOMEN/PELVIS W Exam Date: 09/19/18 Exam Time: 1020 REPORT STATUS: Signed EXAM: CT Abdomen and Pelvis WITH contrast INDICA TION: Melena. COMPARISON: None. TECHNIQUE: Abdomen and pelvis were scanned utilizing a multidetector helical scanner from the lung base to the pubic symphysis after administration of IV contrast. Coronal and sagittal reformations were obtained. Routine protocol was performed. Scan was performed when during portal venous phase. IV CONTRAST: 100 cc of Isovue-370 ORAL CONTRAST: None. COMPLICATIONS: None RADIATION DOSE: Total DLP: 301.3 mGy*cm Dose modulation, iterative reconstruction, and/or weight based adjustment of the mA/kV was utilized to reduce the radiation dose to as low as reasonably achievable. FINDINGS: LINES and TUBES: None. LOWER THORAX: Unremarkable HEPATOBILIARY: No evidence of focal lesion. No biliary ductal dilation. GALLBLADDER: No radio-opaque stones or sludge. No wall thickening. SPLEEN: No splenomegaly. PANCREAS: No focal masses or ductal dilatation. ADRENALS: No adrenal nodules KIDNEYS/URETERS: Kidneys enhance symmetrically. No evidence of hydronephrosis, solid mass, or stone. Subcentimeter bilateral renal hypodensities are too small to characterize, but likely represent cysts. Extrarenal pelvis bilaterally. GI TRACT: No evidence of wall thickening or distension. Appendix is normal. There is scattered colonic diverticulosis without CT evidence of diverticulitis. PELVIC ORGANS/BLADDER: Unremarkable. The uterus is absent. LYMPH NODES: No lymphadenopathy. VESSELS: There are scattered atherosclerotic calcifications in the aorta and branch vessels. PERITONEUM / RETROPERITONEUM: No free air or fluid. BONES AND SOFT TISSUES: Unremarkable. CONCLUSION: Colonic diverticulosis without CT evidence of diverticulitis. Signed by: Dr. Yani Barr MD on 09/19/2018 11:34 AM Dictated By: YANI BARR MD [id number] Transcribed By: JOVAN on 09/19/18 1134 COPY TO: ASHLI NEELY MD
--- OUTSIDE RECORDS SUMMARY | 2018-09-23 18:24 | XMS REPORT | Summary of Care ---
Author Author [facility] Organization [facility] Address Unknown Phone Unavailable Encounter FIN [facility] [id number] Date(s): 05/12/17 - 05/12/17 [facility] [address] [place], [place] [address] Discharge Diagnosis: Complete rotator cuff tear or rupture of right shoulder, no t specified as traumatic Discharge Disposition: Discharged to Home or Self Care Attending Physician: Elliott Orozco MD Admitting Physician: Elliott Orozco MD Vital Signs 1 2 3 Most recent to oldest [Reference Range]: 36.5 DegC (05/03/17 1:50 PM) Temperature Oral [35.8-37.3 DegC] 36.8 DegC (05/12/17 10:15 AM) Temperature Tympanic [36.6-38.1 DegC] 36.5 DegC (05/12/17 7:43 AM) Temperature Temporal Artery [36.3-37.8 DegC] 98.24 (05/12/17 10:15 AM) Temperature Tympanic Fahrenheit 56 bpm (05/12/17 8:48 AM) 56 bpm (05/12/17 8:38 AM) 59 bpm (05/12/17 8:38 AM) Peripheral Pulse Rate [55-105 bpm] 62 bpm (05/12/17 11:10 AM) 63 bpm (05/12/17 11:00 AM) 62 bpm (05/12/17 10:55 AM) Heart Rate Monitored [60-100 bpm] 16 (05/12/17 11:10 AM) 16 (05/12/17 11:00 AM) 18 (05/12/17 10:55 AM) Respiratory Rate [12-20] 95 % (05/12/17 11:10 AM) 95 % (05/12/17 11:00 AM) 95 % (05/12/17 10:55 AM) SpO2 [90-100 %] 122/57 mmHg *HI* (05/12/17 11:10 AM) 115/56 mmHg (05/12/17 11:00 AM) 118/55 mmHg (05/12/17 10:55 AM) Blood Pressure [110-120/65-85 mmHg] 152.40 cm (05/12/17 7:43 AM) 152.40 cm (05/03/17 1:50 PM) Height 152.4 cm (05/03/17 1:50 PM) Height/Length Estimated 152.4 cm (05/12/17 7:43 AM) 152.4 cm (05/03/17 1:50 PM) Height/Length Dosing 60 in (05/12/17 7:43 AM) 60 in (05/03/17 1:50 PM) Height Inches 75 kg (05/12/17 7:43 AM) 60.4 kg (05/03/17 1:50 PM) Weight 58.97 kg (05/03/17 1:50 PM) Weight Estimated 75 kg (05/12/17 7:43 AM) 60.4 kg (05/03/17 1:50 PM) Weight Dosing 165 lb (05/12/17 7:43 AM) 133 lb (05/03/17 1:50 PM) Weight Pounds 32.29 kg/m2 (05/12/17 7:43 AM) 26.01 kg/m2 (05/03/17 1:50 PM) Body Mass Index 25.39 kg/m2 (05/03/17 1:50 PM) Body Mass Index Estimated Problem List Condition Effective Dates Status Health Status Informant Dry eyes(Confirmed) Active Hyperlipidemia(Confi Active rmed) Hypertension(Confirm Active ed) Urge urinary Active incontinence(Confirm ed) Allergies, Adverse Reactions, Alerts Substance Reaction Severity Status azole antifungals Active codeine Active Demerol HCl Active sulfa drugs Active Vicodin Active Medications ALPRAZolam 0.25 mg oral tablet 0.25 mg=1 tabs, Oral, Daily, 0 Refill(s) Start Date: 05/03/17 Stop Date: 05/17/17 Status: Ordered candesartan 4 mg oral tablet 4 mg=1 tabs, Oral, Daily, 0 Refill(s) Start Date: 05/03/17 Stop Date: 05/17/17 Status: Ordered ceFAZolin 1 gm, Soln-IV, IV Piggyback, Once, infuse over 30 minutes, first dose 05/12/17 7 :00:00 TAKER OFF, stop date 05/12/17 7:00:00 TAKER OFF, Prophylaxis Start Date: 05/12/17 Stop Date: 05/12/17 Status: Completed ceFAZolin 1 gm, Soln-IV, IV, Once, first dose 05/12/17 9:12:00 TAKER OFF, stop date 05/12/17 9:1 2:00 TAKER OFF Start Date: 05/12/17 Stop Date: 05/12/17 Status: Completed dexamethasone 8 mg=2 mL, Injection, IV, Once, first dose 05/12/17 9:13:00 TAKER OFF, stop date 05/12 9:13:00 TAKER OFF Start Date: 05/12/17 Stop Date: 05/12/17 Status: Completed ePHEDrine 10 mg=0.2 mL, Injection, IV, Once, first dose 05/12/17 9:17:00 TAKER OFF, stop date 9:17:00 TAKER OFF Start Date: 05/12/17 Stop Date: 05/12/17 Status: Completed fentaNYL 100 mcg=2 mL, Injection, IV, Once, first dose 05/12/17 8:26:00 TAKER OFF, stop date 8:26:00 TAKER OFF Start Date: 05/12/17 Stop Date: 05/12/17 Status: Completed glucosamine 500 mg, Oral, Daily, 0 Refill(s) Start Date: 05/03/17 Stop Date: 05/17/17 Status: Ordered glycopyrrolate 0.4 mg=2 mL, Injection, IV, Once, first dose 05/12/17 10:00:00 TAKER OFF, stop date 10:00:00 TAKER OFF Start Date: 05/12/17 Stop Date: 05/12/17 Status: Completed ketorolac 30 mg=1 mL, Injection, IV, Once, first dose 05/12/17 10:00:00 TAKER OFF, stop date 10:00:00 TAKER OFF Start Date: 05/12/17 Stop Date: 05/12/17 Status: Completed lidocaine 5 mL, Injection, IV, Once, first dose 05/12/17 9:02:00 TAKER OFF, stop date 05/12/17 9 :02:00 TAKER OFF Start Date: 05/12/17 Stop Date: 05/12/17 Status: Completed LR 1,000 mL 1,000 mL, IV, 100 mL/hr, start date 05/12/17 6:53:00 TAKER OFF, For Adults Start Date: 05/12/17 Stop Date: 05/12/17 Status: Discontinued Melatonin 10 mg, Oral, qHS, 0 Refill(s) Start Date: 05/03/17 Stop Date: 05/17/17 Status: Ordered metoprolol succinate 25 mg oral tablet, extended release 25 mg=1 tabs, Oral, Daily, 0 Refill(s) Start Date: 05/03/17 Stop Date: 05/17/17 Status: Ordered midazolam 2 mg=2 mL, Injection, IV, Once, first dose 05/12/17 8:26:00 TAKER OFF, stop date 05/12 8:26:00 TAKER OFF Start Date: 05/12/17 Stop Date: 05/12/17 Status: Completed Misc Medication 700 mL, Soln-IV, IV, Once, first dose 05/12/17 10:23:00 TAKER OFF, stop date 05/12/17 10:23:00 TAKER OFF Start Date: 05/12/17 Stop Date: 05/12/17 Status: Completed morphine 1 mg, IV Push, q5min PRN for Pain Moderate (4-6), order duration: 5 doses, first dose 05/12/17 10:24:00 TAKER OFF, stop date Limited # of times Start Date: 05/12/17 Stop Date: 05/12/17 Status: Discontinued morphine 2 mg, IV Push, q5min PRN for pain severe (7-10), order duration: 5 doses, first dose 05/12/17 10:24:00 TAKER OFF, stop date Limited # of times Start Date: 05/12/17 Stop Date: 05/12/17 Status: Discontinued multivitamin Oral, qWeek, 0 Refill(s) Start Date: 05/03/17 Stop Date: 05/17/17 Status: Ordered neostigmine 3 mg=3 mL, Injection, IV, Once, first dose 05/12/17 10:00:00 TAKER OFF, stop date 04/15 10:00:00 TAKER OFF Start Date: 05/12/17 Stop Date: 05/12/17 Status: Completed [place]-3 oral capsule Oral, Daily, 0 Refill(s) Start Date: 05/03/17 Stop Date: 05/17/17 Status: Ordered ondansetron 4 mg=2 mL, Injection, IV, Once, first dose 05/12/17 9:53:00 TAKER OFF, stop date 05/12 9:53:00 TAKER OFF Start Date: 05/12/17 Stop Date: 05/12/17 Status: Completed promethazine IVPB 12.5 mg, IV Piggyback, Once PRN for nausea/vomiting, infuse over 15 minutes, fir st dose 05/12/17 10:24:00 TAKER OFF Start Date: 05/12/17 Stop Date: 05/12/17 Status: Discontinued propofol 150 mg=15 mL, Emulsion, IV, Once, first dose 05/12/17 9:02:00 TAKER OFF, stop date 9:02:00 TAKER OFF Start Date: 05/12/17 Stop Date: 05/12/17 Status: Completed Restasis 0.05% ophthalmic emulsion 1 drops, Eye-Both, q12hr, 0 Refill(s) Start Date: 05/03/17 Stop Date: 05/17/17 Status: Ordered rocuronium 30 mg=3 mL, Injection, IV, Once, first dose 05/12/17 9:02:00 TAKER OFF, stop date 04/15 9:02:00 TAKER OFF Start Date: 05/12/17 Stop Date: 05/12/17 Status: Completed ropivacaine 150 mg=30 mL, Injection, Nerve Block, Once, first dose 05/12/17 8:30:00 TAKER OFF, sto p date 05/12/17 8:30:00 TAKER OFF Start Date: 05/12/17 Stop Date: 05/12/17 Status: Completed simvastatin 20 mg oral tablet 20 mg=1 tabs, Oral, qHS, 0 Refill(s) Start Date: 05/03/17 Stop Date: 05/17/17 Status: Ordered Vagifem 10 mcg vaginal tablet 10 mcg=1 tabs, VAG, qHS, 0 Refill(s) Start Date: 05/03/17 Stop Date: 05/17/17 Status: Ordered VESIcare 10 mg oral tablet 10 mg=1 tabs, Oral, Daily, 0 Refill(s) Start Date: 05/03/17 Stop Date: 05/17/17 Status: Ordered Vitamin D3 400 IntUnit, Oral, Daily, 0 Refill(s) Start Date: 05/03/17 Stop Date: 05/17/17 Status: Ordered Results LABORATORY Most recent to 1 oldest [Reference Range]: Hemoglobin 13.9 gm/dL [12.0-16.0 gm/dL] *NA* (05/03/17 2:46 PM) Hematocrit 41.7 % [36.0-48.0 %] *NA* (05/03/17 2:46 PM) Sodium Level 141 mEq/L [135-145 mEq/L] *NA* (05/03/17 2:46 PM) Potassium Level 4.0 mEq/L [3.5-5.1 mEq/L] *NA* (05/03/17 2:46 PM) Chloride Level 105 mEq/L [95-109 mEq/L] *NA* (05/03/17 2:46 PM) Total Carbon Dioxide 29 mEq/L Level [24-32 mEq/L] *NA* (05/03/17 2:46 PM) AGAP [10.0-20.0 11.0 mEq/L mEq/L] *NA* (05/03/17 2:46 PM) BUN [7-22 mg/dL] 18 mg/dL *NA* (05/03/17 2:46 PM) Creatinine 0.59 mg/dL [0.50-1.40 mg/dL] *NA* (05/03/17 2:46 PM) Glucose Lvl [70-99 69 mg/dL 1 mg/dL] *LOW* (05/03/17 2:46 PM) Calcium Level 9.5 mg/dL [8.5-10.5 mg/dL] *NA* (05/03/17 2:46 PM) eGFR 95 mL/min/1.73m2 2 *NA* (05/03/17 2:46 PM) Magnesium Level 2.2 mg/dL [1.8-2.4 mg/dL] *NA* (05/03/17 2:46 PM) 1Result Comment: Adult reference range values reflect the clinical guidelines of the [employer]. 2Result Comment: The eGFR is calculated using the [...] should be multiplied by the estimated BMI. Immunizations No data available for this section Procedures Procedure Date Related Diagnosis Body Site bilateral eye lift cardiac cath hysterectomy Tarsal tunnel bilateral extremities Transanal hemorrhoidal dearterialization Social History Social History Type Response Assessment and Plan No data available for this section
[2018-09-23 20:19] LABS: BASOPHILS # (AUTO) 0.1 (0.0-0.1); BASOPHILS % 1.6 % (0.0-1.0); EOSINOPHILS # (AUTO) 0.6 (0.0-0.4); EOSINOPHILS % 10.9 % (0.0-6.0); HEMOGLOBIN 8.9 g/dL (12.0-16.0); LYMPHOCYTES # (AUTO) 1.4 (1.0-3.2); LYMPHOCYTES % 24.3 % (18.0-39.1); MEAN CORPUSCULAR HEMOGLOBIN 30.7 pg (28-32); MEAN CORPUSCULAR HGB CONC 31.8 g/dL (31-35); MEAN CORPUSCULAR VOLUME 96.6 fL (81-99); MONOCYTES # (AUTO) 0.5 (0.2-0.8); MONOCYTES % 8.6 % (4.4-11.3); NEUTROPHILS # (AUTO) 3.1 (2.1-6.9); NEUTROPHILS % 54.4 % (38.7-80.0); PLATELET COUNT 364 x10e3/uL (140-360); RED CELL DISTRIBUTION WIDTH 13.3 % (11.7-14.4)
[2018-09-23 20:31] LABS: INR 0.83; PARTIAL THROMBOPLASTIN TIME 24.1 seconds (23.8-35.5); PROTHROMBIN TIME 11.9 seconds (11.9-14.5)
[2018-09-23 20:40] LABS: ALANINE AMINOTRANSFERASE 13 IU/L (0-55); ALBUMIN 3.7 g/dL (3.5-5.0); ALBUMIN/GLOBULIN RATIO 1.4 (0.8-2.0); ALKALINE PHOSPHATASE 36 IU/L (40-150); ANION GAP 11.7 mmol/L (8-16); BLOOD UREA NITROGEN 20 mg/dL (7-26); BUN/CREATININE RATIO 25 (6-25); CALCIUM 9.2 mg/dL (8.4-10.2); CARBON DIOXIDE 24 mmol/L (22-29); CHLORIDE 109 mmol/L (98-107); CREATINE KINASE 48 IU/L (29-168); EST GLOMERULAR FILTRATION RATE > 60 ML/MIN (60-); GLUCOSE 101 mg/dL (74-118); POTASSIUM 3.7 mmol/L (3.5-5.1); SODIUM 141 mmol/L (136-145)
[2018-09-23] MEDS ORDERED: PANTOPRAZOLE 40 MG 10ML VIAL IV SCH (21:00)
[2018-09-23] MEDS: SODIUM CHLORIDE 0.9% 1000ML 1,000 ML IV SCH (22:37)
--- NOTE | 2018-09-23 22:48 | NUR ---
received patient to unit via wheelchair, aaox3, stable condition. breathing even and unlabored on RA. skin intact. IVF left ac 20g patent and intact, NS @ 100 ml/hr. updated patient to plan of care. bed locked and in lowest position, call light and belongings within easy reach.
[2018-09-24] VITALS (10 sets, daily range): BP systolic 116–148; BP diastolic 56–80
[2018-09-24] MEDS ORDERED: NEXIUM40 MG (00:01)
[2018-09-24] MEDS ORDERED: CO Q-10200 MG PEG (00:01)
[2018-09-24] MEDS ORDERED: XANAX0.25 MG PO (00:01)
[2018-09-24] MEDS ORDERED: [UNRECOGNIZED DRUG - OTHER] VG (00:01)
[2018-09-24] MEDS ORDERED: BENADRYL25 M1 PO (00:01)
[2018-09-24] MEDS ORDERED: METOPROLOL SUCC50 MG PO (00:01)
[2018-09-24] MEDS ORDERED: CELEBREX100 MG PO (00:01)
[2018-09-24] MEDS ORDERED: MYRBETRIQ25 MG (00:01)
[2018-09-24] MEDS ORDERED: ATACAND4 MG PO (00:01)
[2018-09-24] MEDS ORDERED: VITAMIN D3400 UNIT PO (00:01)
[2018-09-24] MEDS ORDERED: SIMVASTATIN20 MG PO (00:01)
[2018-09-24] MEDS ORDERED: SODIUM CHLORIDE 0.9% 250ML 250 ML ONE (00:40)
--- NOTE | 2018-09-24 05:21 | NUR ---
patient began receiving blood at 0045, remained with patient for first 15min. tolerated well, no adverse reactions observed. continued to monitor patient throughout transfusion per protocol. blood transfusion ended at 0304. no adverse reactions noted.
[2018-09-24 06:03] LABS: BASOPHILS # (AUTO) 0.1 (0.0-0.1); BASOPHILS % 1.3 % (0.0-1.0); EOSINOPHILS # (AUTO) 0.6 (0.0-0.4); EOSINOPHILS % 12.6 % (0.0-6.0); HEMATOCRIT 30.2 % (34.2-44.1); HEMOGLOBIN 9.8 g/dL (12.0-16.0); LYMPHOCYTES # (AUTO) 1.2 (1.0-3.2); LYMPHOCYTES % 26.2 % (18.0-39.1); MEAN CORPUSCULAR HEMOGLOBIN 30.8 pg (28-32); MEAN CORPUSCULAR HGB CONC 32.5 g/dL (31-35); MONOCYTES # (AUTO) 0.5 (0.2-0.8); MONOCYTES % 10.4 % (4.4-11.3); NEUTROPHILS # (AUTO) 2.3 (2.1-6.9); NEUTROPHILS % 49.3 % (38.7-80.0); PLATELET COUNT 286 x10e3/uL (140-360); RED BLOOD COUNT 3.18 x10e6/uL (3.6-5.1); RED CELL DISTRIBUTION WIDTH 13.4 % (11.7-14.4)
[2018-09-24] MEDS: SODIUM CHLORIDE 0.9% 1000ML 1,000 ML IV SCH ×2 (08:01→17:04)
[2018-09-24] MEDS ORDERED: ALPRAZOLAM 0.25 MG TAB PO PRN (11:30)
--- NOTE | 2018-09-24 11:39 | NUR ---
Nurse went to administered Tylenol for THOMPSON. Pt stated she received Tylenol 2tabs, 500mg each by friend. Friend in room at this time.
--- NOTE | 2018-09-24 15:28 | NUR ---
Dr. Childers's office called regarding orders for EGD and colonoscopy for Tuesday. Awaiting call back
--- NOTE | 2018-09-24 19:52 | NUR ---
call back received from dr. saucedo. new orders received for bowel prep and continue on clear liquids. no need for NPO post midnight at this time. Patient will be seen by MD pierre. in AM.
[2018-09-24] MEDS: SIMVASTATIN 20 MG TAB PO SCH (20:52)
[2018-09-24] MEDS ORDERED: CITRATE OF MAGNESIA 300ML BOTTLE PO ONE (21:00)
[2018-09-25] VITALS (9 sets, daily range): BP systolic 109–154; BP diastolic 58–69
[2018-09-25] MEDS: SODIUM CHLORIDE 0.9% 1000ML 1,000 ML IV SCH ×3 (03:00→23:00)
--- NOTE | 2018-09-25 07:32 | NUR ---
RECEIVED PATIENT AWAKE RESTING IN BED. NO SIGNS OF DISTRESS NOTED. CALL LIGHT IN REACH, WILL CONTINUE TO MONITOR.
[2018-09-25] MEDS: PANTOPRAZOLE SOD 40 MG TABEC PO SCH (08:25)
[2018-09-25] MEDS: METOPROLOL SUCCINATE 50 MG TAB XL PO SCH (08:25)
[2018-09-25] MEDS ORDERED: CITRATE OF MAGNESIA 300ML BOTTLE PO ONE (09:00)
[2018-09-25] MEDS ORDERED: PEG (High)/E-LYTE SOLN 4,000 ML BTL PO ONE (09:30)
[2018-09-25] MEDS: ACETAMINOPHEN 325 MG TAB PO PRN ×2 (12:47→18:39)
--- NOTE | 2018-09-25 16:21 | NUR ---
DOS: 09/24/18 at 5pm History and Physical PCP ; GI cc: black stool HPI: 68yoF, with hx diverticulosis and GIB, now with black stools and fatigue. Found to have anemia, transfused 1 unit PRBC, and admitted for further mgmt; no abdominal pain. PMH: HTN, HLD, diverticulosis, GIB PSHx: rotator cuff RIght, hernia repair, hysterectomy, tarsal tunel release B/L, eye lid lift Allergies; see emr FH/SH; ; no etoh/cigs meds; see MAR ROS: no f/c/s/N/V/D/THOMPSON/vision changes/skin rash v/s;' rev'd PE: tired appearing anicteric ns1s2 mod bs soft nt nd no e/t a&ox3; redding skin dry n. affect labs/meds; rev'd A/P: 68yoF GIB and Melena Moderate anemia DIverticulosis HTN HLD PLAN s/p 1 unit pRBC GI consulted for endoscopy ppi scd Waylon Adames MD, PhD.
[2018-09-25 18:25] LABS: HEMATOCRIT 31.2 % (34.2-44.1); HEMOGLOBIN 10.2 g/dL (12.0-16.0)
[2018-09-25] MEDS ORDERED: PEG (High)/E-LYTE SOLN 4,000 ML BTL PO NR (18:30)
[2018-09-25] MEDS: SIMVASTATIN 20 MG TAB PO SCH (20:13)
--- NOTE | 2018-09-25 22:48 | NUR ---
Progress Note- IM O/N: no signs active bleeding ROS: no f/c/s/N/V/D/THOMPSON/vision changes/skin rash v/s;' rev'd PE: tired appearing anicteric ns1s2 mod bs soft nt nd no e/t a&ox3; redding skin dry n. affect labs/meds; rev'd A/P: 68yoF GIB and Melena Moderate anemia DIverticulosis HTN HLD PLAN s/p 1 unit pRBC GI consulted for endoscopy ppi scd 09/25 colonoscopy prep. f/u /H/H. Waylon Adames MD, PhD.
[2018-09-26] MEDS: ACETAMINOPHEN 325 MG TAB PO PRN ×2 (01:15→07:26)
--- NOTE | 2018-09-26 01:30 | Consultation ---
DATE OF CONSULTATION: 09/25/2018 HISTORY OF PRESENT ILLNESS: Ms. Ellis is a 68-year-old lady with history of diverticulosis, hyperlipidemia, hemorrhoidal disease, hypertension, and anxiety disorder. She called us over the weekend because she had been passing melanotic color stool and she is anxious. Her hemoglobin on a check was noted to be a little bit over 8. She was asked to come to the hospital for admission. She is due for a procedure in the next 48 hours and the patient was afraid that every time she took bowel prep, her bleeding has increased. She has no nausea or vomiting, except for some right upper quadrant, left lower quadrant discomfort, and some loose stool in addition to melanotic colored stool. She has been taking ibuprofen 800 mg for several days. No heartburn, acid reflux. No nausea. No vomiting. No fever. Her prior workup that she had colonoscopy about two years ago. We do not have copy of that and the patient reported that in the past, she had similar complaint found to be due to diverticulitis. ALLERGIES: TO CODEINE, VICODIN, AND DEMEROL. SOCIAL HISTORY: Socially, she is retired. She has four kids. She drinks socially and no smoking. PAST SURGICAL HISTORY: Partial hysterectomy, carpal tunnel bilaterally, rotator cuff repair, and hemorrhoid surgery. PHYSICAL EXAMINATION: GENERAL: She is awake, alert, and oriented. VITAL SIGNS: Temperature 96.7, pulse 72, respiratory rate 20, and blood pressure 135/63. HEENT: Normal sclerae. NECK: Supple. No node or mass. LUNGS: Clear to auscultation. HEART: Irregularly irregular. Occasional irregular beat. ABDOMEN: Soft, nontender. No acute sign. No masses. EXTREMITIES: No edema. CENTRAL NERVOUS SYSTEM: Motor function grossly intact. LABORATORY DATA: White cell count 4.69, hemoglobin after 1 unit of blood transfusion 9.8, hematocrit 30, and platelets 286. Liver function normal. BUN, creatinine normal. Sodium, potassium normal. PT, PTT normal. She had CT scan of the abdomen with contrast showed diverticulosis, no sign of diverticulitis. IMPRESSION: Probably a bleed due to either diverticulosis or using of nonsteroidal antiinflammatory drug, if it is diverticulosis, most likely on the right side of her colon. PLAN: To continue observation, bowel cleansing, and upper endoscopy and colonoscopy. Ruyessyn MD RYAN Velasco /[id number]
--- NOTE | 2018-09-26 03:33 | NUR ---
PATIENT IS UNABLE TO CONSUME THE REST OF COLYTE. STATES THAT SHE STARTED TO FEEL NAUSEATED.
[2018-09-26 04:00] VITALS: BP 128/64
--- NOTE | 2018-09-26 07:29 | NUR ---
RECEIVED PATIENT AWAKE RESTING IN BED AT THIS TIME. ACETAMINOPHEN GIVEN FOR HEADACHE. PATIENT TO BE NPO AFTER BREAKFAST FOR EGD AND COLONOSCOPY TODAY. NO SIGNS OF DISTRESS, CALL LIGHT IN REACH WILL CONTINUE TO MONITOR.
[2018-09-26] MEDS: SODIUM CHLORIDE 0.9% 1000ML 1,000 ML IV SCH ×2 (07:44→17:43)
[2018-09-26 08:00] VITALS: BP 135/72
[2018-09-26 09:00] VITALS: BP 125/58
[2018-09-26] MEDS ORDERED: CANDESARTAN CILEXETIL PO SCH ×2 (09:00)
[2018-09-26] MEDS ORDERED: CHOLECALCIFEROL 400 UNIT TAB PO SCH (09:00)
[2018-09-26] MEDS ORDERED: NON-FORMULARY MEDICATION (Cholecalciferol (Vitamin D3) (Vitamin D3) 1 TAB) PO SCH (09:00)
[2018-09-26] MEDS: METOPROLOL SUCCINATE 50 MG TAB XL PO SCH (09:28)
[2018-09-26] MEDS: PANTOPRAZOLE SOD 40 MG TABEC PO SCH (09:28)
[2018-09-26 09:48] VITALS: BP 125/58
[2018-09-26 12:00] VITALS: BP 133/60
[2018-09-26] MEDS ORDERED: MIDAZOLAM HCL 2 MG/2 ML VIAL ONE (12:39)
[2018-09-26] MEDS ORDERED: PROPOFOL IV EMULSION 10 MG/ML 50 ML VIAL ONE (12:39)
[2018-09-26] MEDS ORDERED: FENTANYL CITRATE/PF 100MCG/2 ML INJ ONE (12:39)
--- NOTE | 2018-09-26 14:08 | NUR ---
PATIENT GOING FOR EGD AND COLONOSCOPY AT THIS TIME.
--- NOTE | 2018-09-26 16:43 | NUR ---
PATIENT BACK FROM EGD AND COLONOSCOPY AT THIS TIME. CALL LIGHT IN REACH WILL CONTINUE TO MONITOR.
[2018-09-26 16:48] VITALS: BP 144/75
--- NOTE | 2018-09-26 17:59 | NUR ---
REMOVED PATIENTS IV. CATHETER TIP INTACT AND PRESSURE DRESSING APPLIED.
--- NOTE | 2018-09-26 18:16 | NUR ---
PATIENT DISCHARGED FROM FACILITY. PATIENT GATHERED ALL PERSONAL BELONGINGS, DISCHARGE INSTRUCTIONS, AND FOLLOW UP INFORMATION. LEFT UNIT IN WHEELCHAIR AND WENT HOME VIA PRIVATE AUTO.
== END 2018-09-26 18:16 | disposition home or self-care (01) | DRG 379 ==
LOC: ER 18:20 → ERHOLD 21:05 → MED/SURG 22:50
PROVIDERS: ADMIT Internal Medicine; ATTEND Internal Medicine
PROC: 30233N1 Transfusion of Nonautologous Red Blood Cells into Peripheral Vein, Percutaneous Approach (ICD-10-PCS; principal; 2018-09-24)
PROC: 0DB98ZX Excision of Duodenum, Via Natural or Artificial Opening Endoscopic, Diagnostic (ICD-10-PCS; 2018-09-24)
PROC: 0DB78ZX Excision of Stomach, Pylorus, Via Natural or Artificial Opening Endoscopic, Diagnostic (ICD-10-PCS; 2018-09-24)
PROC: 0DB68ZX Excision of Stomach, Via Natural or Artificial Opening Endoscopic, Diagnostic (ICD-10-PCS; 2018-09-24)
PROC: 0DBP8ZX Excision of Rectum, Via Natural or Artificial Opening Endoscopic, Diagnostic (ICD-10-PCS; 2018-09-24)
PROC: 0DBN8ZX Excision of Sigmoid Colon, Via Natural or Artificial Opening Endoscopic, Diagnostic (ICD-10-PCS; 2018-09-24)
DX: K57.91 Diverticulosis of intestine, part unspecified, without perforation or abscess with bleeding (principal); I10 Essential (primary) hypertension; E78.5 Hyperlipidemia, unspecified; D64.9 Anemia, unspecified; Z79.1 Long term (current) use of non-steroidal anti-inflammatories (NSAID); D12.5 Benign neoplasm of sigmoid colon; K62.9 Disease of anus and rectum, unspecified; K64.8 Other hemorrhoids; K44.9 Diaphragmatic hernia without obstruction or gangrene; K31.4 Gastric diverticulum; K29.70 Gastritis, unspecified, without bleeding
CPT/HCPCS: 36415; 43239; 45384; 80053; 82550; 82553; 84484; 85014; 85018; 85025; 85610; 85730; 86850; 86900; 86920; 88305; 88312; 93005; 99284; J2250; J7030; J7050; P9016

== ENCOUNTER → 2018-10-13 | Outpatient (CLI) | payer MEDICARE, OTHER ==
[~2018-10-13] MED LIST changes: -IOPAMIDOL 370 MG/ML 200 ML INFUS..BTL INJ ONE; -SODIUM CHLORIDE 0.9% 50ML 50 ML ONE
--- NOTE | 2018-10-13 09:47 | Diagnostic Imaging Report ---
Barium swallow with upper GI [employer]ICE WORKER(S): Ryne Rice MD History: Diverticulum, gastric. Comparison: None. Procedure: Barium swallow and upper GI fluoroscopic images obtained with air and barium contrast in a variety of positions. Fluoroscopy Time: 1.7 minute, total radiation dose 49.8 mGy DISCUSSION: SWALLOW: Grossly unremarkable. ESOPHAGUS: Mucosa is unremarkable. Motility is unremarkable. Mild inducible gastroesophageal reflux. STOMACH: There is a small gastric fundal diverticulum. No definite mass. SMALL BOWEL: Bulb and sweep are normal. Duodenal-jejunal junction is in the normal expected position. Visualized proximal small bowel loops are unremarkable. IMPRESSION: Small gastric fundal diverticulum. Mild inducible gastroesophageal reflux. Signed by: Dr. Ryne Rice MD on 10/13/2018 9:43 AM
== END ==
LOC: DX 08:38
PROVIDERS: ATTEND Internal Medicine Gastroenterology
DX: K57.90 Diverticulosis of intestine, part unspecified, without perforation or abscess without bleeding (principal); K21.9 Gastro-esophageal reflux disease without esophagitis
CPT/HCPCS: 74246

== ENCOUNTER → 2025-04-09 | Day surgery (SDC) | payer MEDICARE, OTHER ==
[2025-04-05 09:44] LABS: BASOPHILS % 1.5 % (0.0-1.0); EOSINOPHILS % 9.4 % (0.0-6.0); LYMPHOCYTES % 18.7 % (18.0-39.1); MONOCYTES % 9.9 % (4.4-11.3); NEUTROPHILS % 60.2 % (38.7-80.0); RED CELL DISTRIBUTION WIDTH 13.2 % (11.7-14.4)
[~2025-04-09] MED LIST changes: +ALIGN1 EACH; +BETAPACE80 MG PO; +D3-5000125 MCG; +DICYCLOMINE HCL10 MG PO; +FAMOTIDINE20 MG PO; +GEMTESA75 MG PO; +GLUCAGON FOR INJ 1 MG VIAL ONE; +LASIX20 MG PO; +LIDOCAINE HCL 2% LOCAL INJ 5 ML SDV VIAL INJ ONE; +LOSARTAN POTASS25 MG PO; +PHENYLEPHRINE HCL 1% 10 MG/ML VIAL ONE; +PROPOFOL IV EMULSION 10 MG/ML 20 ML VIAL ONE; +SODIUM CHLORIDE 0.9% 100 ML ONE; +TRICOR48 MG PO; +VERAPAMIL ER120 MG PO; +[UNRECOGNIZED DRUG - OTHER]
[2025-04-09] MEDS: LACTATED RINGER'S 1,000 ML ONE (14:01)
[2025-04-09 14:25] VITALS: TEMP 98.6
[2025-04-09 14:55] VITALS: BP 138/72; PULSE 65; RESP 16; O2SAT 97
== END | disposition home or self-care (01) ==
LOC: OR 10:56
PROVIDERS: ATTEND Internal Medicine Gastroenterology
DX: Z12.11 Encounter for screening for malignant neoplasm of colon (principal); K57.30 Diverticulosis of large intestine without perforation or abscess without bleeding; K64.8 Other hemorrhoids; K21.9 Gastro-esophageal reflux disease without esophagitis; K44.9 Diaphragmatic hernia without obstruction or gangrene; K29.00 Acute gastritis without bleeding; K29.80 Duodenitis without bleeding; K26.9 Duodenal ulcer, unspecified as acute or chronic, without hemorrhage or perforation; K59.00 Constipation, unspecified; K76.0 Fatty (change of) liver, not elsewhere classified; I10 Essential (primary) hypertension; E78.5 Hyperlipidemia, unspecified; N32.81 Overactive bladder; Z88.5 Allergy status to narcotic agent; Z88.2 Allergy status to sulfonamides; Z88.6 Allergy status to analgesic agent; Z79.899 Other long term (current) drug therapy; Z86.0100 Personal history of colon polyps, unspecified; Z01.810 Encounter for preprocedural cardiovascular examination; Z01.812 Encounter for preprocedural laboratory examination
CPT/HCPCS: 36415; 43239 ×2; 45378; 82941; 85025; 93005; G0105; J1610; J2003; J2371; J7050